=== PATIENT | male | born 1960 | race Caucasian/White ===

== ENCOUNTER 2016-06-03 10:07 | Emergency (ER) | payer OTHER ==
[2016-06-03 14:26] VITALS: BP 119/56
--- NOTE | 2016-06-03 14:26 | PHYS DOC ---
Past Medical History Past Medical History: No Pertinent History Past Surgical History: Appendectomy Additional Past Surgical Histo: left ankle/leg surgery Alcohol Use: None Drug Use: None Adult General Chief Complaint Chief Complaint: LACERATION/AVULSION HPI HPI Patient is a 56 year old male who presents with left lower eyelid laceration, patient was working with a crowbar when it accidentally slipped out of his hand and hit to the edge of his lower eyelid. Patient denies any vision loss, denies any headache nausea vomiting. Denies any significant medical history, he is not on any blood thinners, the works in this hospital. Review of Systems Review of Systems Constitutional: Denies fever or chills [] Eyes: Left lower eyelid laceration HENT: Denies nasal congestion or sore throat [] Respiratory: Denies cough or shortness of breath [] Cardiovascular: No additional information not addressed in HPI [] GI: Denies abdominal pain, nausea, vomiting, bloody stools or diarrhea [] : Denies dysuria or hematuria [] Musculoskeletal: Denies back pain or joint pain [] Integument: Denies rash or skin lesions [] Neurologic: Denies headache, focal weakness or sensory changes [] Endocrine: Denies polyuria or polydipsia [] Allergies Allergies Allergies Coded Allergies Type Severity Reaction Last Updated Verified No Known Drug Allergies 10/15/14 No Physical Exam Physical Exam Constitutional: Well developed, well nourished, no acute distress, non-toxic appearance. [] HENT: Normocephalic, atraumatic, bilateral external ears normal, oropharynx moist, no oral exudates, nose normal. [] Eyes: PERRLA, EOMI, conjunctiva normal, left lower eyelid lateral aspect with a full-thickness laceration involving the eyelid margin approximately 1 cm long. The globe appears normal. Neck: Normal range of motion, no tenderness, supple, no stridor. [] Cardiovascular:Heart rate regular rhythm, no murmur [] Lungs & Thorax: Bilateral breath sounds clear to auscultation [] Abdomen: Bowel sounds normal, soft, no tenderness, no masses, no pulsatile masses. [] Skin: Warm, dry, no erythema, no rash. [] Back: No tenderness, no CVA tenderness. [] Extremities: No tenderness, no cyanosis, no clubbing, ROM intact, no edema. [] Neurologic: Alert and oriented X 3, normal motor function, normal sensory function, no focal deficits noted. [] Psychologic: Affect normal, judgement normal, mood normal. [] Current Patient Data Vital Signs Vital Signs Date Time Temp Pulse Resp B/P Pulse Ox O2 Delivery O2 Flow Rate FiO2 06/03/16 14:26 58 18 119/56 98 Room Air 06/03/16 12:00 98.5 98.5 Course & Med Decision Making Course & Med Decision Making Pertinent Labs and Imaging studies reviewed. (See chart for details) Patient has left lower eyelid laceration after being heat on the left lower eyelid with a crowbar. He has no loss of consciousness, no headache or vision changes. His tetanus is up-to-date. Visual acuity 20/40 left 20/40 right 20/40 both 13:17 spoke with Mike at Dr. Lott's office she stated she will contact the doctor and they'll call us back. Contacted Dr. Cohen skeins yarn examiner who recommended patient to be seen by plastic skeins yarn examiner because this is a full-thickness laceration involving the eyelid margin, and the procedure to close it need to be done by a plastic surgeon to get proper cosmetics outcome. 13:31 spoke to transfer line coordinator 13:39 spoke to RN Marino who consulted the plastic surgeon 13:53 spoke with Marino RN at who informed me Dr. Bates plastic surgeon accepted patient through the Ed. Family will transfer patient Dr. Ortiz saw patient in the Ed. Pt was seen and examined with Shaji Gilbert APRN. Agree with assessment and plan as documented. In brief, this is a 56 year old male presenting for left eyelid pain and laceration that occurred shortly prior to arrival. He denies eye pain or vision changes. Bleeding is controlled. No foreign body sensation. Has approx 1cm gaping laceration to left lower lateral eye lid, full thickness, from margin, nonbleeding. He will be transferred by POV to [facility] to see Plastics for laceration repair. He and understand and agree with plan. - MD Olvier Beal Disclaimer Dragon Disclaimer This electronic medical record was generated, in whole or in part, using a voice recognition dictation system. Departure Departure Impression: Primary Impression: Eyelid laceration, left Additional Impression: Contusion, eyelid, left Disposition: 01 HOME, SELF-CARE Condition: STABLE Referrals: DEYSI PADILLA MD (PCP) Patient Instructions: Laceration Care, Adult, [id number] Additional Instructions: You a laceration on the left lower eyelid, this is a full-thickness laceration with the eyelid involved. We are transferring you to [facility], Dr. Bates plastic surgeon will be coming to the ED to close the laceration at . Problem Qualifiers Primary Impression: Eyelid laceration, left Encounter type: initial encounter Qualified Code: S01.112A - Laceration without foreign body of left eyelid and periocular area, initial encounter SHAJI GILBERT APRN Jun 03, 2016 14:26 Nicole ORTIZ MD Jun 03, 2016 14:59
== END 2016-06-03 14:30 | disposition home or self-care (01) ==
LOC: ER 10:07
DX: S01.112A Laceration without foreign body of left eyelid and periocular area, initial encounter (principal); W01.198A Fall on same level from slipping, tripping and stumbling with subsequent striking against other object, initial encounter; Y93.89 Activity, other specified; Y92.89 Other specified places as the place of occurrence of the external cause; Y99.8 Other external cause status
CPT/HCPCS: 99282

== ENCOUNTER → 2017-07-22 | Outpatient (CLI) | payer OTHER | END | disposition home or self-care (01) | LOC: KCIC MRI 07:37 | DX: M75.22 Bicipital tendinitis, left shoulder (principal); M77.8 Other enthesopathies, not elsewhere classified; M12.812 Other specific arthropathies, not elsewhere classified, left shoulder | CPT/HCPCS: 73221 ==

== ENCOUNTER → 2018-08-12 | Outpatient (CLI) | payer OTHER ==
--- NOTE | 2018-08-12 08:43 | KCIC ---
KNEE RIGHT 3V History: Right knee pain Comparison: None. Findings: 3 views of the right knee are submitted. No acute fracture or dislocation is identified. Joint spaces are overall preserved. Impression: 1. No acute osseous abnormality is identified by radiographs. Electronically signed by: Laz Knox MD (08/12/2018 8:40 AM) [id number]
== END | disposition home or self-care (01) ==
LOC: KCIC 08:08
PROVIDERS: ATTEND Family Medicine
DX: M25.561 Pain in right knee (principal)
CPT/HCPCS: 73562